=== PATIENT | female | born 1960 | race Caucasian/White ===

== ENCOUNTER → 2018-03-29 | Outpatient (CLI) | payer OTHER | END | disposition home or self-care (01) | LOC: RAH 08:35 | PROVIDERS: ATTEND Internal Medicine Cardiovascular Disease | DX: I73.9 Peripheral vascular disease, unspecified (principal); I70.90 Unspecified atherosclerosis; M47.815 Spondylosis without myelopathy or radiculopathy, thoracolumbar region; K76.0 Fatty (change of) liver, not elsewhere classified; K44.9 Diaphragmatic hernia without obstruction or gangrene | CPT/HCPCS: 75635 ==

== ENCOUNTER 2018-05-20 07:54 | Day surgery (SDC) | payer OTHER ==
[2018-05-14 15:58] VITALS: BP 172/76
[2018-05-14 16:07] LABS: BASOPHILS % (AUTO) 0.5 % (0.0-5.0); EOSINOPHILS % (AUTO) 1.5 % (0.0-8.0); HEMATOCRIT 38.7 % (36-48); LYMPHOCYTES % (AUTO) 25.5 % (21.0-51.0); MEAN CORPUSCULAR HEMOGLOBIN 31.5 pg (27.0-33.0); MEAN CORPUSCULAR HGB CONC 33.3 g/dL (32.0-36.0); MEAN CORPUSCULAR VOLUME 94.6 fL (79-99); MONOCYTES % (AUTO) 8.1 % (3.0-13.0); NEUTROPHILS % (AUTO) 64.4 % (40.0-77.0); PLATELET COUNT (AUTO) 287 K/uL (130-400); RED BLOOD CELL COUNT(AUTO) 4.09 MIL/uL (4.00-5.50); RED CELL DISTRIBUTION WIDTH 14.2 % (11.0-15.5); WHITE BLOOD COUNT (AUTO) 4.8 K/uL (4.8-10.8)
[2018-05-14 16:13] LABS: APPEARANCE,URINE Clear (CLEAR); BILIRUBIN,URINE Negative (NEGATIVE); COLOR,URINE Yellow (YELLOW); GLUCOSE, URINE (UA) Negative (NEGATIVE); KETONES,URINE Negative (NEGATIVE); LEUKOCYTE ESTERASE ,URINE Negative (NEGATIVE); NITRATE,URINE Negative (NEGATIVE); OCCULT BLOOD,URINE Negative (NEGATIVE); PH,URINE 5.5 (5.0-8.0); PROTEIN,URINE Negative (NEGATIVE); UROBILINOGEN,URINE 0.2 mg/dL (0.2-1.0)
[2018-05-14 16:21] LABS: INR 0.94 (0.85-1.15); PARTIAL THROMBOPLASTIN TIME 30.5 SEC (26.3-35.5); PROTHROMBIN TIME 9.9 SEC (9.6-11.6)
[2018-05-14 16:22] LABS: CREATININE 0.9 mg/dL (0.5-1.5); POTASSIUM 4.3 mmol/L (3.5-5.1)
[~2018-05-20] VITALS: Ht 162.6 cm; Wt 79.1 kg
[2018-05-20] VITALS (12 sets, daily range): BP systolic 125–160; BP diastolic 58–85
[~2018-05-20 07:54] MED LIST: AEC81 PO; ALPR2TAB7 PO; AMIT25TA9 PO; BUSP7.5T7 PO; CLOP75TA32 PO; FLUT1BLS3 IH; QUET100T70 PO; SODIUM CHLORIDE 0.9% 1000ML 1,000 ML IV SCH
[2018-05-20] MEDS ORDERED: SODIUM CHLORIDE 0.9% 1000ML 1,000 ML IV ONE (09:31)
[2018-05-20] MEDS ORDERED: LIDOCAINE HCL 1% 20 ML VIAL ONE (10:22)
[2018-05-20] MEDS ORDERED: HEPARIN SODIUM 1000UNIT/ML 10ML VIAL ONE (10:22)
[2018-05-20] MEDS ORDERED: IODIXANOL 320 MG/ML 100 ML VIAL ONE (10:23)
[2018-05-20] MEDS ORDERED: NITROGLYCERIN 5 MG/ML 10 ML VIAL IV ONE (10:23)
[2018-05-20] MEDS ORDERED: FENTANYL CITRATE PF 50 MCG/1 ML 2ML VIAL ONE (11:19)
[2018-05-20] MEDS ORDERED: LABETALOL HCL 5 MG/ML 20ML VIAL IV ONE (11:31)
[2018-05-20] MEDS ORDERED: SODIUM CHLORIDE 0.9% 1000ML 1,000 ML IV SCH (11:45)
[2018-05-20] MEDS ORDERED: ALPRAZOLAM 1 MG TAB PO SCH (14:00)
[2018-05-20] MEDS ORDERED: CLOPIDOGREL BISULFATE 75 MG TAB PO SCH (21:00)
[2018-05-20] MEDS ORDERED: BUSPIRONE HCL 5 MG TABLET PO SCH (21:00)
[2018-05-20] MEDS ORDERED: QUETIAPINE FUMARATE 100 MG TAB PO SCH (21:00)
[2018-05-21] MEDS ORDERED: ASPIRIN 81 MG EC TAB PO SCH (09:00)
[2018-05-21] MEDS ORDERED: TRELEGY ELLIPTA IH SCH (09:00)
[2018-05-21] MEDS ORDERED: AMITRIPTYLINE HCL 25 MG TABLET PO SCH (09:00)
== END 2018-05-20 18:00 | disposition home or self-care (01) ==
LOC: DAH 07:54
PROVIDERS: ATTEND Internal Medicine Cardiovascular Disease
DX: I70.213 Atherosclerosis of native arteries of extremities with intermittent claudication, bilateral legs (principal); I70.0 Atherosclerosis of aorta; I70.218 Atherosclerosis of native arteries of extremities with intermittent claudication, other extremity; J44.9 Chronic obstructive pulmonary disease, unspecified; F41.9 Anxiety disorder, unspecified; F32.9 Major depressive disorder, single episode, unspecified; Z98.890 Other specified postprocedural states; Z79.899 Other long term (current) drug therapy; Z68.30 Body mass index [BMI] 30.0-30.9, adult; Z79.01 Long term (current) use of anticoagulants
CPT/HCPCS: 36247; 36415; 71045; 75630; 75774; 80048; 81003; 85025; 85610; 85730; 93005; A4606; C1769; C1887; C1894; J1644; J3010; J3490 ×2; J7030; Q9967; 75716

== ENCOUNTER → 2018-05-28 | Outpatient (CLI) | payer OTHER ==
[~2018-05-28] MED LIST changes: -SODIUM CHLORIDE 0.9% 1000ML 1,000 ML IV SCH
== END | disposition home or self-care (01) ==
LOC: RAH 13:41
PROVIDERS: ATTEND Family Medicine
DX: N63.21 Unspecified lump in the left breast, upper outer quadrant (principal); R92.8 Other abnormal and inconclusive findings on diagnostic imaging of breast
CPT/HCPCS: 76641; 77066

== ENCOUNTER 2018-07-02 07:05 | Inpatient (IN) | payer OTHER | END 2018-07-06 15:22 | disposition home or self-care (01) | LOC: DAHIP 07:05 → 2AH 07-04 11:30 → 2CV 12:27 → 2CH 17:17 | PROC: 021 Heart and Great Vessels, Bypass (ICD-10-PCS; principal; 2018-07-02 08:20) | DX: I74.5 Embolism and thrombosis of iliac artery (principal) ==

== ENCOUNTER → 2019-02-11 | Outpatient (CLI) | payer OTHER ==
[~2019-02-11] MED LIST changes: -AEC81 PO; +ASPI-1197 PO; +CHOL500062 PO; +CYAN250010 PO; +DOCU250C14 PO; +FOLI0.8T PO; +ROSU20TA31 PO
== END | disposition home or self-care (01) ==
LOC: SHCH 15:16
PROVIDERS: ATTEND Internal Medicine Cardiovascular Disease
DX: I73.9 Peripheral vascular disease, unspecified (principal)
CPT/HCPCS: 93922

== ENCOUNTER → 2020-01-05 | Outpatient (CLI) | payer OTHER ==
[~2020-01-05] MED LIST changes: +QUET100T33 PO; -QUET100T70 PO
== END | disposition home or self-care (01) ==
LOC: SHCH 15:02
PROVIDERS: ATTEND Internal Medicine Cardiovascular Disease
DX: I73.9 Peripheral vascular disease, unspecified (principal)
CPT/HCPCS: 93922

== ENCOUNTER → 2020-11-30 | Outpatient (CLI) | payer OTHER ==
[~2020-11-30] MED LIST changes: -FOLI0.8T PO; +FOLI0.8T3 PO; +IOHEXOL 350 MG/ML 100ML INFUS..BTL IV ONE; +IOHEXOL-350 50ML VIAL IV ONE; -QUET100T33 PO; +QUET100T34 PO
== END | disposition home or self-care (01) ==
LOC: RAH 09:15
PROVIDERS: ATTEND Internal Medicine Cardiovascular Disease
DX: I73.89 Other specified peripheral vascular diseases (principal)
CPT/HCPCS: 75635; Q9967 ×2